=== PATIENT | female | born 1985 | race Hispanic/Latino ===

== ENCOUNTER 2016-10-01 06:15 | Day surgery (SDC) | payer MEDICAID ==
--- NOTE | 2016-10-01 06:54 | CP.PCM.PN ---
Subjective - Date & Time of Evaluation Date of Evaluation: 10/01/16 Time of Evaluation: 06:53 - Subjective Subjective: 59 year old female with PMH of asthma, anemia was seen in [facility] for pre-operative evaluation for right 5th digit surgery by Dr. Hsu. today. Patient has been having a lot of pain on her right 5th digit and has exhausted conservative treatment and now opts for surgical intervention. NPO status confirmed. Patient is NAD and AAOx3, denies n/v/f/c/sob/cp. Objective - Constitutional Appears: Well, Non-toxic, No Acute Distress - Extremities Exam Additional comments: lower extremity focused exam: Vasc:DP and PT pulses palpable 2/4 b/l. CFT < 3 seconds to all digits b/l. Skin temperature warm to warm from proximal to distal. No edema noted. Neuro:Gross sensation intact b/l. Derm:Skin is well hydrated. No open lesions noted. Nails 1-5 b/l WNL for thickness and length. Ortho: 5th digit on the right is noted to be rotated, with contracture. Biomechanical exam:Ankle dorsiflexion range of motion to 90 degrees on the right and left. Negative crepitus with ROM b/l. STJ ROM is noted to be full and 20 degrees of inversion and 10 degrees of eversion to the right and left. First MTPJ ROM on the left is to 20 degrees of dorsiflexion, 10 degrees of plantarflexion. Gait exam: increased pronation noted throughout the midstance phase of gait; early heel rise present bilaterally secondary to equinus; decreased arch height noted throughout the stance phase of gait bilaterally. - Neurological Exam Neurological Exam: Alert, Awake, Oriented x3 - Psychiatric Exam Psychiatric exam: Normal Affect, Normal Mood Assessment and Plan - Assessment and Plan (Free Text) Assessment: 31 year old female with painful 5th digit Plan: Pt was seen and examined in [facility] Pt NPO status was confirmed All Pre-op testing and clearance was in the chart Pt has exhausted all conservative treatment at this time and is opting for surgical intervention Pt was explained procedure and post-operative course All pt's questions were answered to satisfaction No guarantees were made Pt understands all risks, benefits and complications of procedure Pt will follow-up with Dr. Hsu
--- NOTE | 2016-10-01 06:58 | CP.SDSHP ---
Same Day Surgery H & P - History Proposed Procedure: right 5th digit arthroplasty of PIPJ with hemiphalengectomy Pre-Op Diagnosis: right 5th digit deformity - Previous Medical/Surgical History Pulmonary: Asthma, Smoking Misc: Anemia Previous Surgical History: right 5th digit and bunion surgery, left 5th digit and bunion surgery - Allergies Allergies: Allergies No Known Allergies Allergy (Verified 10/01/16 06:29) - Physical Exam Neuro: WNL Heart: WNL Lungs: WNL GI: WNL - {Optional Preform as Required} Integument: WNL Ortho: Other (pain to 5th digit) - Impression Impression: Pt was seen and examined in [facility]. Pt NPO status was confirmed. All Pre-op testing and clearance was in the chart. Pt has exhausted all conservative treatment at this time and is opting for surgical intervention. Pt was explained procedure and post-operative course. All pt's questions were answered to satisfaction. No guarantees were made. Pt understands all risks, benefits and complications of procedure. Pt will follow-up with Dr. Hsu Pt. Evaluated Today:Candidate for Anesthesia & Procedure: Yes - Date & Time Date: 10/01/16 Time: 06:57 Short Stay Discharge - Short Stay Discharge Admitting Diagnosis/Reason for Visit: M20.5X0 Disposition: HOME/ ROUTINE Referrals: Moises Dominguez MD [Primary Care Provider] - Instructions: Cephalexin (By mouth), Acetaminophen/Codeine (By mouth), Ibuprofen (By mouth), RICE Therapy (GEN) Additional Instructions (Diet, Activity): -Patient in good condition for discharge home. Pt to resume medications per medical reconciliation. Resume regular diet. Please keep dressing clean, dry, & intact to surgical site, use plastic bag over bandage for showering, wear post op shoe at all times when ambulating, call office if you see signs of infection (redness, swelling, malodor), please make an appointment to see Dr. Hsu in office within 1 week for post-op check(Thursday at 4:00 PM in office, call for an appointment) Progress Note/Discharge Note with Instructions: - Patient evaluated bedside in recovery s/p surgical procedure. - After surgical procedure patient in NAD - (+) Void, (+) Appetite - Capillary refill time <3s and NVSI intact. - Patient denies complaints at this time - Post operative instructions and plan of care explained to patient at length. - Pt. acknowledges understanding. - Patient stable for DC per podiatric surgery
[2016-10-01 07:12] VITALS: BMI 31.8
[2016-10-01] MEDS ORDERED: Bupivacaine 0.5% Inj(30mL) IJ ONE ×2 (07:40→08:20)
[2016-10-01] MEDS ORDERED: Lidocaine 1% Inj (20ml) IJ ONE ×2 (07:40→08:20)
[2016-10-01] MEDS ORDERED: Lidocaine 1% Inj (20ml) ONE (07:52)
[2016-10-01] MEDS ORDERED: Dexamethasone 4 mg/1 ml ONE (07:52)
[2016-10-01] MEDS ORDERED: Bupivacaine 0.5% Inj(30mL) ONE (07:52)
[2016-10-01] MEDS ORDERED: Lactated Ringer's 1,000 ML IV ONE (08:00)
[2016-10-01] MEDS ORDERED: Propofol 10 mg/ml Inj (20 ML) ONE (08:03)
[2016-10-01] MEDS ORDERED: Midazolam 2 MG/2 ML VIAL ONE (08:04)
[2016-10-01] MEDS ORDERED: Lidocaine Hydrochloride 0 ML INJ ONE (08:04)
[2016-10-01] MEDS ORDERED: Dexamethasone 4 mg/1 ml IM ONE (09:00)
--- NOTE | 2016-10-01 09:15 | PCM.SURG1 ---
Surgeon's Initial Post Op Note - Surgeon's Notes Surgeon: Dr. Lake Hsu Mirror Painter: Dr. Cuevas PGY-1, Dr. Mendez PGY-2 Type of Anesthesia: IV Sedation, Local Anesthesia Administered By: Dr. Sanabria Pre-Operative Diagnosis: right 5th digit hammertoe deformity Operative Findings: see dictation. 3-0 vicryl, 4-0 nylon. 17 mL 1:1 1% lidocaine plain, 0.5%marcaine plain. 2CC dex Post-Operative Diagnosis: same as preop Operation Performed: right foot 5th digit arthroplasty with hemiphalangectomy Specimen/Specimens Removed: bone, soft tissue Estimated Blood Loss: EBL {In ML}: 2 Blood Products Given: N/A Drains Used: No Drains Post-Op Condition: Good Date of Surgery/Procedure: 10/01/16 Time of Surgery/Procedure: 08:10
[2016-10-01] MEDS ORDERED: Oxycodone/Acetaminophen 5/325 mg Tab PO PRN ×2 (09:16)
[2016-10-01] MEDS ORDERED: HYDROmorphone 0.5 mg/0.5 ml ISec IVP PRN (09:26)
[2016-10-01] MEDS ORDERED: Lactated Ringer's 1,000 ML IV SCH (09:26)
[2016-10-01] MEDS ORDERED: DiphenhydrAMINE 50 mg/ml Inj IVP PRN (09:26)
--- NOTE | 2016-10-01 09:51 | RAD ---
PROCEDURE: Right Foot Radiographs. HISTORY: s/p right foot surgery COMPARISON: None. FINDINGS: BONES: Normal. No fracture. Status post osteotomy of the 5th proximal phalanx. JOINTS: Normal. SOFT TISSUES: Normal. OTHER FINDINGS: None. IMPRESSION: Postsurgical changes. No acute fracture.
[2016-10-01 10:20] VITALS: PULSE 69; RESP 18; O2SAT 97
[2016-10-01 10:41] VITALS: BP 107/65; TEMP 97.7
--- NOTE | 2016-10-01 12:44 | OP ---
PROCEDURE DATE: 10/01/2016 SURGEON: Dr. Lake Hsu. LICENSED PSYCHOLOGIST DIRECTOR: Dr. Brown, PGY-[address] Mendez, PGY-2. DIPLOMA PHARMACY TECHNICIAN: Dr. Sanabria ANESTHESIA: IV sedation with local. PREOPERATIVE DIAGNOSIS: Right fifth digit hammertoe deformity. POSTOPERATIVE DIAGNOSIS: Right fifth digit hammertoe deformity. NAME OF PROCEDURE: Right fifth digit proximal interphalangeal joint arthroplasty with hemiphalangectomy of the fifth digit. INDICATIONS: The patient is a 31-year-old female with the above diagnoses. The patient has exhausted all conservative treatment at this time and now requires surgical intervention. The patient signed the consent after careful explanation of risks, benefits, complications and alternatives for surgical procedure. No guarantees were given nor implied. PREPARATION: The patient was brought into the operating room and placed on the operating room table in a supine position. A well-padded pneumatic ankle tourniquet was applied to the patient's right ankle in the malleolar position. A timeout was performed for identification of the correct patient and procedure. Once IV sedation was achieved, a total of 17 mL of a 1:1 mixture of 1% lidocaine plain and 0.5% Marcaine plain was given in a local block type fashion to the right foot. The right foot was then prepped and draped in normal sterile manner. The patient's right foot was then exsanguinated and the pneumatic ankle tourniquet was inflated to 250 mmHg and the procedure began. PROCEDURE: Attention was then directed to the fifth digit of the patient's right foot, which was noted to be contracted and an approximate 4 cm incision was made on the dorsal aspect of the proximal interphalangeal joint of the fifth digit in a semielliptical orientation using a #15 blade. Sharp dissection was carried down through the deep tissues, being careful to identify and retract all vital neurovascular structures. All bleeders were ligated and cauterized. At this time, a transverse tenotomy and capsulotomy was performed to the proximal interphalangeal joint and the head of the proximal phalanx was then freed of its capsular and ligamentous attachments. Next, utilizing the sagittal bone saw, the head of the proximal phalanx was resected and passed from the operative site and sent for pathology. Attention was then directed to the right fifth digit middle phalanx which was freed of its ligamentous attachments proximally. Using a double action bone cutter, the lateral half of the middle phalanx was excised and passed from the operative field. The correction of the deformity at this time was noted to be excellent. The incision site and fifth digit was then flushed with copious amounts of sterile normal saline. The subcutaneous tissue was then reapproximated and sutured with 3-0 Vicryl. The skin was then reapproximated and sutured with 4-0 nylon. At this time, 2 mL of dexamethasone 4 mg/kg was given to the right foot at the base of the proximal phalanx of the fifth digit. The incision site was then dressed with Xeroform, Betadine soaked 4 x 4 gauze, Jerome, Kerlix and Coban. POSTOPERATIVE CONDITION: The patient tolerated the anesthesia and procedure well and was escorted to the recovery room with vital signs stable and neurovascular status intact to the right foot. The patient will weightbear as tolerated in a surgical shoe and will follow up with Dr. Hsu in his office. LUIS BROWN DPM Lake Hsu DPM cc: [id number] TT: 10/01/2016 12:43:44 sn MTDD
== END 2016-10-01 10:48 | disposition home or self-care (01) ==
LOC: H.OPSURG 06:15
PROVIDERS: ATTEND Podiatrist
DX: M20.41 Other hammer toe(s) (acquired), right foot (principal); J45.909 Unspecified asthma, uncomplicated; D64.9 Anemia, unspecified